=== PATIENT | male | born 1960 | race Caucasian/White ===

== ENCOUNTER 2023-01-10 09:07 | Day surgery (SDC) | payer BC ==
[~2023-01-10] VITALS: Ht 182.9 cm; Wt 100.9 kg
[2023-01-10 11:17] VITALS: BP 120/76
--- NOTE | 2023-01-10 11:18 | NUR ---
01/10/23 1118 Kristle Noriega IV AT 1056 WNL
== END 2023-01-10 11:05 | disposition home or self-care (01) ==
LOC: ORSCSDS 09:07
PROVIDERS: Surgery
PROC: 0DJD8ZZ Inspection of Lower Intestinal Tract, Via Natural or Artificial Opening Endoscopic (ICD-10-PCS; principal; 2023-01-10 10:15)
DX: Z12.11 Encounter for screening for malignant neoplasm of colon (principal); R19.5 Other fecal abnormalities; K57.30 Diverticulosis of large intestine without perforation or abscess without bleeding; K21.9 Gastro-esophageal reflux disease without esophagitis; Z79.899 Other long term (current) drug therapy
CPT/HCPCS: J2704; J7120